=== PATIENT | male | born 1960 | race Caucasian/White ===

== ENCOUNTER → 2017-07-07 | Outpatient (CLI) | payer BC ==
[~2017-07-07] MED LIST: CLON1 PO; FISH1000; GLUC500 PO; HYDR1TAB94 PO; IBUPROFEN200 MG PO; Multiple Vitam1 EAC1 PO; NIAC500
== END ==
LOC: LAB SHORT 08:49 → PLD 08:49
DX: D22.5 Melanocytic nevi of trunk (principal)
CPT/HCPCS: 88305

== ENCOUNTER → 2018-09-13 | Outpatient (CLI) | payer BC ==
[~2018-09-13] MED LIST changes: +ATOR40TA PO; +Aspirin EC81 MG PO; +Lisinopril2.5 MG PO; +METO25 PO
[2018-09-14 13:40] LABS: Antinuclear Antibody Screen Negative (Negative)
[2018-09-14 14:44] LABS: Rheumatoid Factor, Serum Negative (Negative)
== END ==
LOC: LAB 13:22 → LAB SHORT 13:22
PROVIDERS: Hospitalist
DX: R68.82 Decreased libido (principal); M25.50 Pain in unspecified joint
CPT/HCPCS: 84402; 84403; 85651; 86038; 86430

== ENCOUNTER → 2019-06-03 | Outpatient (CLI) | payer BC ==
[2019-06-03 13:39] LABS: BASOPHILS ABSOLUTE AUTO 0.03 K/mm3 (0.00-0.23); BASOPHILS PERCENT AUTO 0 % (0-2); EOSINOPHILS ABSOLUTE AUTO 0.02 K/mm3 (0.00-0.68); EOSINOPHILS PERCENT AUTO 0 % (0-6); Hematocrit 44.4 % (37.0-53.0); Hemoglobin 15.7 g/dL (13.5-17.5); IMMATURE GRAN ABSOLUTE AUTO 0.02 K/mm3 (0.00-0.10); IMMATURE GRAN PERCENT AUTO 0 % (0-1); LYMPHOCYTES ABSOLUTE AUTO 1.78 K/mm3 (0.84-5.20); LYMPHOCYTES PERCENT AUTO 22 % (21-46); MONOCYTES ABSOLUTE AUTO 0.66 K/mm3 (0.16-1.47); MONOCYTES PERCENT AUTO 8 % (4-13); Mean Corpuscular HGB 32.8 pg (26.0-34.0); Mean Corpuscular HGB Conc 35.4 g/dL (31.5-36.5); Mean Corpuscular Volume 93 fL (80-100); Mean Platelet Volume 10.1 fL (9.1-12.4); NEUTROPHILS ABSOLUTE AUTO 5.74 K/mm3 (1.96-9.15); NEUTROPHILS PERCENT AUTO 70 % (41-73); Platelet Count 175 K/mm3 (150-400); RDW Standard Deviation 41.2 fL (35.1-46.3); Red Blood Cell Count 4.79 M/mm3 (4.30-5.90); White Blood Cell Count 8.25 K/mm3 (4.00-11.30)
[2019-06-03 13:57] LABS: Alanine Aminotransfer (ALT/SGP 22 U/L (12-78); Albumin, Blood 4.6 g/dL (3.4-5.0); Albumin/Globulin Ratio 1.7 (0.8-1.8); Alk Phos 66 U/L (50-136); Anion Gap 7 mmol/L (6-16); Aspartate Aminotrans (AST/SGOT 19 U/L (12-37); Bilirubin, Total 1.6 mg/dL (0.1-1.0); Blood Urea Nitrogen 13 mg/dL (8-24); Bun/Creatinine Ratio 13.4 (12.0-20.0); CO2, Blood 25 mmol/L (21-32); Calcium, Blood 9.5 mg/dL (8.5-10.1); Chloride, Blood 105 mmol/L (98-108); Creatinine, Blood 0.97 mg/dL (0.60-1.20); Globulin, Blood 2.7 g/dL (2.2-4.0); Glomerular Filtration Rate >60 (60-); Glucose, Blood 90 mg/dL (70-99); Potassium, Blood 3.8 mmol/L (3.5-5.5); Sodium, Blood 137 mmol/L (136-145); Total Protein, Blood 7.3 g/dL (6.4-8.2)
== END | disposition home or self-care (01) ==
LOC: LAB SHORT 13:06 → LAB 13:06
PROVIDERS: Physician Assistant
DX: R30.0 Dysuria (principal); R10.9 Unspecified abdominal pain
CPT/HCPCS: 80053; 85025

== ENCOUNTER → 2019-06-03 | Outpatient (CLI) | payer BC | END | disposition home or self-care (01) | LOC: LAB 11:30 → LAB SHORT 11:30 | DX: R30.0 Dysuria (principal) | CPT/HCPCS: 87086 ==

== ENCOUNTER 2021-08-14 12:33 | Day surgery (SDC) | payer BC ==
[~2021-08-14] VITALS: Ht 180.3 cm; Wt 89.5 kg
[~2021-08-14 12:33] MED LIST changes: +MULVITA PO
--- NOTE | 2021-08-14 13:31 | NUR ---
History, Chart, Medications and Allergies reviewed before start of procedure. Lungs clear T/O to Auscultation. Patient States Post-Procedure ride home has been arranged with [facility].
--- NOTE | 2021-08-14 13:50 | NUR ---
AGREE WITH PREVIOUS STUDENT NURSE NOTE.
--- NOTE | 2021-08-14 15:01 | NUR ---
08/14/21 1501 Mario Araiza History, Chart, Medications and Allergies reviewed before start of procedure. Patient confirms NPO status and agrees with scheduled surgery. 3-LEAD EKG REVIEWED WITH PHYSICIAN PRIOR TO START OF PROCEDURE. MONITOR INTACT WITH CONTINUOUS PULSE OXIMETRY AND INTERMITTENT BP. PATIENT DETERMINED TO BE ASA APPROPRIATE FOR PROPOFOL SEDATION PRIOR TO START OF PROCEDURE BY DR. AMADOR
--- NOTE | 2021-08-14 15:04 | NUR ---
PT AXOX4, ABLE TO REPOSITION SELF IN BED. REQUESTING PO FLUIDS.
--- NOTE | 2021-08-14 15:30 | NUR ---
Patient up to Ambulate independently. Gait steady. Discharge instructions reviewed with patient. Patient verbalizes understanding. Copy given to patient to take home. Patient States Post-Procedure ride home has been arranged. Discharged via wheelchair to private car for ride home. ALL BELONGINGS RETURNED TO PATIENT.
== END 2021-08-14 23:30 | disposition home or self-care (01) ==
LOC: ORSCMMR 12:33 → ORD 14:15 → ORSCMMR 23:30
PROVIDERS: Surgery
PROC: 0DBL8ZX Excision of Transverse Colon, Via Natural or Artificial Opening Endoscopic, Diagnostic (ICD-10-PCS; principal; 2021-08-14 14:15)
DX: Z12.11 Encounter for screening for malignant neoplasm of colon (principal); Z85.068 Personal history of other malignant neoplasm of small intestine; Z86.010 Personal history of colon polyps; D12.3 Benign neoplasm of transverse colon; E78.5 Hyperlipidemia, unspecified; Z79.899 Other long term (current) drug therapy
CPT/HCPCS: 88305; J2704; J7120

== ENCOUNTER → 2023-04-05 | Outpatient (CLI) | payer BC | LOC: LAB SHORT 08:22 → LAB 08:22 | DX: B35.1 Tinea unguium (principal) | CPT/HCPCS: 88305; 88312 ==

== ENCOUNTER 2024-01-12 08:23 | Day surgery (SDC) | payer BC ==
[2024-01-12] VITALS (15 sets, daily range): BP systolic 118–154; BP diastolic 63–90
[~2024-01-12] VITALS: Ht 180.3 cm; Wt 94.8 kg
[~2024-01-12 08:23] MED LIST changes: +Acetaminophen 500 MG Tab PO SCH; +CeFAZolin Sodium 2,000 MG in NS 100 ML IV SCH; +Chlorhexidine Mouth Care 15 ML UDC MT SCH; +Lactated Ringer's 1,000 ML IV SCH; +OxyCODONE HCL 10 MG TABCR PO SCH; +Ropivacaine 0.5% HCl/Pf 123.125 MG,EPINEPHrine HCL 0.25 MG,Ketorolac Tromethamine 15 MG... INFIL SCH; +Tranexamic Acid 100 ML IV SCH; +Vancomycin HCL 1,000 MG in NS 250 ML IV SCH; +[UNRECOGNIZED DRUG - OTHER] PO
[2024-01-12] MEDS ORDERED: CLON1 PO (08:33)
--- NOTE | 2024-01-12 09:07 | NUR ---
Ambulatory in Day Surgery History, Chart, Medications and Allergies reviewed before start of procedure. Pre-Op teaching done. Pt verbalizes understanding.
[2024-01-12] MEDS ORDERED: Promethazine HCl 25 MG Tab PO PRN (10:00)
[2024-01-12] MEDS ORDERED: Bisacodyl 10 MG Supp PR PRN (10:05)
[2024-01-12] MEDS ORDERED: FLU VACC TS2024-25(6MOS UP)/PF 45 MCG/0.5 ML SYRINGE IM PRN (10:05)
[2024-01-12] MEDS ORDERED: DiphenhydrAMINE HCL 25 MG Cap PO PRN (10:05)
[2024-01-12] MEDS ORDERED: CeFAZolin Sodium 2,000 MG VIAL ONE (10:08)
[2024-01-12] MEDS ORDERED: Vancomycin HCl 1000 MG ADDvantage ONE (10:09)
[2024-01-12] MEDS ORDERED: Lactated Ringer's 1,000 ML IV SCH (10:10)
[2024-01-12] MEDS ORDERED: OxyCODONE HCL 5 MG TAB PO PRN ×2 (10:10)
[2024-01-12] MEDS ORDERED: Magnesium Hydroxide Conc 10 ML UDC PO PRN (10:10)
[2024-01-12] MEDS ORDERED: Metoclopramide HCl 5MG / ML 2ML Vial IV PRN (10:10)
[2024-01-12] MEDS ORDERED: HYDROmorphone HCl/Pf 1MG SYR IV PRN (10:10)
[2024-01-12] MEDS ORDERED: Ondansetron HCl 2 MG / ML 2ML Vial IV PRN (10:10)
[2024-01-12] MEDS ORDERED: propofoL 100 ML IV ONE (10:14)
[2024-01-12] MEDS ORDERED: ClonazePAM 1 MG Tab PO PRN (10:15)
[2024-01-12] MEDS ORDERED: ePHEDrine Sulfate 50 MG/ML 1ML Injection ONE (10:45)
--- NOTE | 2024-01-12 11:01 | NUR ---
01/12/24 1101 Hung,Jazlyn SPINAL BLOCK COMPLETED BY UPON ENTRY TO OR. PATIENT TOLERATED WELL.
[2024-01-12] MEDS ORDERED: propofoL 20 ML IV ONE ×3 (11:34→12:21)
[2024-01-12] MEDS ORDERED: Ketorolac Tromethamine 15mg Vial IV SCH (12:00)
[2024-01-12] MEDS ORDERED: Dexamethasone Sod Phos 10 MG/ML 1ML VIAL ONE (12:10)
[2024-01-12] MEDS ORDERED: Ondansetron HCl 2 MG / ML 2ML Vial ONE (12:10)
[2024-01-12] MEDS ORDERED: Phenylephrine HCl 10mg/ml 1 ml Vial ONE (12:11)
[2024-01-12] MEDS ORDERED: FentaNYL Citrate 50 MCG/ML 2 ML Injection ONE (12:39)
[2024-01-12] MEDS ORDERED: Ketorolac Tromethamine 30mg Vial ONE (12:43)
[2024-01-12] MEDS ORDERED: HYDROmorphone HCl/Pf 1MG SYR ONE (12:54)
[2024-01-12] MEDS ORDERED: Acetaminophen 500 MG Tab PO SCH (16:00)
[2024-01-12] MEDS ORDERED: CeFAZolin Sodium 2,000 MG in NS 100 ML IV SCH (18:00)
--- NOTE | 2024-01-12 18:47 | NUR ---
SHIFT SUMMARY HAS DONE WELL POST OP. WAS INITIALLY VERY PAINFUL IN PACU, BUT SINCE ARRIVAL TO UNIT HAS HAD GOOD PAIN MANAGEMENT. RANGING FROM 0-5. SURG SITE WNL. WORKED w/ PT, UP IN CHAIR, AMBULATED IN HALLWAY. EATING, DRINKING, VOIDED.
[2024-01-12] MEDS ORDERED: Vancomycin HCL 1,000 MG in NS 250 ML IV SCH (21:00)
[2024-01-12] MEDS ORDERED: Docusate Sodium 100 MG Cap PO SCH (21:00)
[2024-01-13 00:15] VITALS: BP 127/74
[2024-01-13 03:02] VITALS: BP 117/62
[2024-01-13 05:00] LABS: BASOPHILS ABSOLUTE AUTO 0.01 K/mm3 (0.00-0.23); BASOPHILS PERCENT AUTO 0 % (0-2); EOSINOPHILS PERCENT AUTO 0 % (0-6); IMMATURE GRAN ABSOLUTE AUTO 0.05 K/mm3 (0.00-0.10); IMMATURE GRAN PERCENT AUTO 0 % (0-1); LYMPHOCYTES ABSOLUTE AUTO 1.37 K/mm3 (0.84-5.20); LYMPHOCYTES PERCENT AUTO 11 % (21-46); MONOCYTES PERCENT AUTO 8 % (4-13); Mean Corpuscular HGB 32.2 pg (26.0-34.0); Mean Corpuscular HGB Conc 35.1 g/dL (31.5-36.5); Mean Corpuscular Volume 92 fL (80-100); Mean Platelet Volume 9.9 fL (9.1-12.4); NEUTROPHILS ABSOLUTE AUTO 9.91 K/mm3 (1.96-9.15); NEUTROPHILS PERCENT AUTO 80 % (41-73); Platelet Count 189 K/mm3 (150-400); RDW Standard Deviation 40.3 fL (35.1-46.3); Red Blood Cell Count 4.04 M/mm3 (4.30-5.90); White Blood Cell Count 12.34 K/mm3 (4.00-11.30)
[2024-01-13 05:23] LABS: Calcium, Blood 9.1 mg/dL (8.5-10.1); Creatinine, Blood 0.87 mg/dL (0.60-1.20); Magnesium, Blood 2.3 mg/dL (1.6-2.4); Potassium, Blood 4.3 mmol/L (3.5-5.5)
--- NOTE | 2024-01-13 06:03 | NUR ---
SHIFT SUMMARY PT POD 0 LEFT TOTAL KNEE. PT HAS RESTED MOST OF THE NIGHT. PT HAS BEEN UP AND AMBULATING, VOIDING AND TOLERATING PO INTAKE. VITALS STABLE. SURIGCAL SITE WNL. NO ACUTE CHANGES OVERNIGHT. BED IN LOWEST POSITION, CALL LIGHT WITHIN REACH.
--- NOTE | 2024-01-13 07:14 | NUR ---
BEDSIDE REPORT RECIEVED. PT RESTING IN CHAIR, A&O X4, VSS, BREATHING UNLABORED. CALL LIGHT WITHIN REACH.
[2024-01-13 07:18] VITALS: BP 104/68
[2024-01-13] MEDS ORDERED: ASPI81CH PO (08:14)
[2024-01-13] MEDS ORDERED: OXAYDO5 M1 PO (08:17)
[2024-01-13] MEDS ORDERED: SULTRIDS PO (08:18)
[2024-01-13] MEDS ORDERED: PROM25 PO (08:18)
[2024-01-13] MEDS ORDERED: Trimethoprim/Sulfamethoxazole DS Tab PO SCH (09:00)
[2024-01-13] MEDS ORDERED: Aspirin 81 MG Chew PO SCH (09:00)
[2024-01-13] MEDS ORDERED: Multivitamins 1 Tab PO SCH (09:00)
--- NOTE | 2024-01-13 09:02 | NUR ---
ambulating in sheriff w/therapy.
[2024-01-13 09:55] VITALS: BP 137/67
--- NOTE | 2024-01-13 10:10 | NUR ---
discharged reviewed dc instructions w/pt; verbalized understanding. iv dc'd. vss. pt left unit in wc w/possessions, dressing changes, polar pack and dc paperwork in spouse's hand to ride outside.
== END 2024-01-13 10:00 | disposition home or self-care (01) ==
LOC: ORSCMMR 08:23 → ORD 10:45 → ORSCMMR 10:45 → SURS 13:10 → ORSCMMR 01-13 10:00
PROVIDERS: Orthopaedic Surgery
PROC: 0SRD0JA Replacement of Left Knee Joint with Synthetic Substitute, Uncemented, Open Approach (ICD-10-PCS; principal; 2024-01-12 10:45)
DX: M17.12 Unilateral primary osteoarthritis, left knee (principal)
CPT/HCPCS: 36415; 73560-LT; 80048; 83735; 85025; 97110; 97116; 97162; 97530; A9270; C1713; C1776; J0171; J0690; J0735; J1100; J1171; J1885; J2371; J2405; J2704; J2795; J3010; J3370; J7050; J7120